=== PATIENT | female | born 1985 | race Caucasian/White ===

== ENCOUNTER 2020-03-01 18:03 | Emergency (ER) | payer SELFPAY ==
[~2020-03-01] VITALS: Ht 157.5 cm; Wt 52.2 kg
[2020-03-01] MEDS ORDERED: SODIUM CHLORIDE 0.9% 1000ML 1,000 ML IV STA (18:15)
[2020-03-01 18:49] LABS: BASOPHILS # (AUTO) 0.1 (0.0-0.1); BASOPHILS % 0.8 % (0.0-1.0); EOSINOPHILS # (AUTO) 0.1 (0.0-0.4); EOSINOPHILS % 1.1 % (0.0-6.0); HEMATOCRIT 42.7 % (34.2-44.1); HEMOGLOBIN 14.5 g/dL (12.0-16.0); LYMPHOCYTES # (AUTO) 2.1 (1.0-3.2); LYMPHOCYTES % 25.7 % (18.0-39.1); MEAN CORPUSCULAR HEMOGLOBIN 30.5 pg (28-32); MEAN CORPUSCULAR VOLUME 89.7 fL (81-99); MONOCYTES # (AUTO) 0.6 (0.2-0.8); MONOCYTES % 7.5 % (4.4-11.3); NEUTROPHILS # (AUTO) 5.2 (2.1-6.9); NEUTROPHILS % 64.8 % (38.7-80.0); PLATELET COUNT 266 x10e3/uL (140-360); RED BLOOD COUNT 4.76 x10e6/uL (3.6-5.1); RED CELL DISTRIBUTION WIDTH 11.9 % (11.7-14.4)
[2020-03-01 19:05] LABS: ALANINE AMINOTRANSFERASE 10 IU/L (0-55); ALBUMIN 4.2 g/dL (3.5-5.0); ALBUMIN/GLOBULIN RATIO 1.2 (0.8-2.0); ALKALINE PHOSPHATASE 70 IU/L (40-150); ANION GAP 13.7 mmol/L (8-16); BLOOD UREA NITROGEN 5 mg/dL (7-26); BUN/CREATININE RATIO 7 (6-25); CALCIUM 8.8 mg/dL (8.4-10.2); CARBON DIOXIDE 28 mmol/L (22-29); CHLORIDE 102 mmol/L (98-107); EST GLOMERULAR FILTRATION RATE > 60 ML/MIN (60-); GLUCOSE 85 mg/dL (74-118); POTASSIUM 3.7 mmol/L (3.5-5.1); SODIUM 140 mmol/L (136-145)
[2020-03-01] MEDS ORDERED: KETOROLAC TROMETHAMINE 30 MG/ML VIAL IV STA (19:10)
[2020-03-01 19:15] LABS: CLARITY,URINE CLEAR (CLEAR); COLOR,URINE YELLOW (YELLOW)
[2020-03-01] MEDS ORDERED: MAGNESIUM SULFATE 2GM/50ML 50 ML IV ONE ×2 (19:15→19:23)
[2020-03-01] MEDS ORDERED: DIPHENHYDRAMINE HCL INJ 50 MG/ML VIAL IV ONE (19:15)
[2020-03-01] MEDS ORDERED: METOCLOPRAMIDE HCL 10 MG/2ML VIAL IV ONE (19:15)
[2020-03-01] MEDS ORDERED: ACETAMIN/BUTALBITAL/CAFFEINE TAB PO ONE (19:15)
[2020-03-01 19:16] LABS: BILIRUBIN,URINE NEGATIVE (NEGATIVE); KETONES,URINE NEGATIVE (NEGATIVE); LEUKOCYTE ESTERASE ,URINE LARGE (NEGATIVE); NITRITE,URINE NEGATIVE (NEGATIVE); PROTEIN,URINE DIPSTICK NEGATIVE (NEGATIVE); URINE UROBILINOGEN 0.2 mg/dL (0.2 - 1)
[2020-03-01 19:20] LABS: BACTERIA,URINE RARE /HPF; EPITHELIAL CELLS,URINE FEW /LPF; RBC,URINE 0-5 /HPF (0-5); WBC,URINE (MAN) 0-5 /HPF (0-5)
--- NOTE | 2020-03-01 19:40 | Emergency Department Note ---
History of Present Illnes History of Present Illness Chief Complaint: Neurological History of Present Illness This is a 34 year old female arrived to the ED with complaints of a right sided headache for several days. Chief Complaint Comment pt came in via POV for c/o temporal headache with epistaxis, as per pt, she has had the ssx for 1 week now, pt takes Keppra and Depakote for seizures but denies having a recent seizure activity since August 2018, no unifocal deficits noted, VSS Historian: Patient Arrival Mode: Car Onset (how long ago): day(s) Radiation: Reports non-radiation Severity: mild Duration (how long): day(s) Timing of current episode: constant Past Medical/Family History Physician Review I have reviewed the patient's past medical and family history. Any updates have been documented here. Past Medical History Recent Fever: No Clinical Suspicion of Infectio: No New/Unexplained Change in Ment: No Past Medical History: Seizure Disorder, Depression Social History Smoking Cessation: Never Smoker Other Any Pre-Existing Lines (PICC,: No Review of Systems Review of Systems Constitutional: Reports no symptoms EENTM: Reports no symptoms Cardiovascular: Reports no symptoms Respiratory: Reports no symptoms Gastrointestinal: Reports no symptoms Genitourinary: Reports no symptoms Musculoskeletal: Reports no symptoms Integumentary: Reports no symptoms Neurological: Reports as per HPI, Reports headache Psychological: Reports no symptoms Endocrine: Reports no symptoms Hematological/Lymphatic: Reports no symptoms Review of other systems: All other systems negative Physical Exam Related Data Allergies: Coded Allergies: hydroxyzine (Verified Allergy, Unknown, 03/01/20) meperidine (Verified Allergy, Unknown, 03/01/20) phenytoin (Verified Allergy, Unknown, 03/01/20) Triage Vital Signs Vital Signs Date Time Temp Pulse Resp B/P (MAP) Pulse Ox O2 Delivery O2 Flow Rate FiO2 03/01/20 18:13 98.1 87 18 121/91 100 Room Air Vital signs reviewed: Yes Physical Exam CONSTITUTIONAL Constitutional: Present well-developed, Present well-nourished HENT HENT: Present normocephalic, Present atraumatic, Present oropharynx clear/moist, Present nose normal HENT L/R: Present left ext ear normal, Present right ext ear normal EYES Eyes: Reports PERRL, Reports conjunctivae normal NECK Neck: Present ROM normal PULMONARY Pulmonary: Present effort normal, Present breath sounds normal CARDIOVASCULAR Cardiovascular: Present regular rhythm, Present heart sounds normal, Present capillary refill normal, Present normal rate GASTROINTESTINAL Abdominal: Present soft, Present nontender, Present bowel sounds normal GENITOURINARY Genitourinary: Present exam deferred SKIN Skin: Present warm, Present dry MUSCULOSKELETAL Musculoskeletal: Present ROM normal NEUROLOGICAL Neurological: Present alert, Present oriented x 3, Present no gross motor or sensory deficits PSYCHOLOGICAL Psychological: Present mood/affect normal, Present judgement normal Results Laboratory Result Diagram: 03/01/20183403/01/201834 Laboratory Laboratory Tests Test 03/01/20 18:35 03/01/20 18:17 White Blood Count 7.99 x10e3/uL (4.8-10.8) Red Blood Count 4.76 x10e6/uL (3.6-5.1) Hemoglobin 14.5 g/dL (12.0-16.0) Hematocrit 42.7 % (34.2-44.1) Mean Corpuscular Volume 89.7 fL (81-99) Mean Corpuscular Hemoglobin 30.5 pg (28-32) Mean Corpuscular Hemoglobin Concent 34.0 g/dL (31-35) Red Cell Distribution Width 11.9 % (11.7-14.4) Platelet Count 266 x10e3/uL (140-360) Neutrophils (%) (Auto) 64.8 % (38.7-80.0) Lymphocytes (%) (Auto) 25.7 % (18.0-39.1) Monocytes (%) (Auto) 7.5 % (4.4-11.3) Eosinophils (%) (Auto) 1.1 % (0.0-6.0) Basophils (%) (Auto) 0.8 % (0.0-1.0) Neutrophils # (Auto) 5.2 (2.1-6.9) Lymphocytes # (Auto) 2.1 (1.0-3.2) Monocytes # (Auto) 0.6 (0.2-0.8) Eosinophils # (Auto) 0.1 (0.0-0.4) Basophils # (Auto) 0.1 (0.0-0.1) Absolute Immature Granulocyte (auto 0.01 x10e3/uL (0-0.1) Sodium Level 140 mmol/L (136-145) Potassium Level 3.7 mmol/L (3.5-5.1) Chloride Level 102 mmol/L (98-107) Carbon Dioxide Level 28 mmol/L (22-29) Anion Gap 13.7 mmol/L (8-16) Blood Urea Nitrogen 5 mg/dL (7-26) Creatinine 0.70 mg/dL (0.57-1.11) Estimat Glomerular Filtration Rate > 60 ML/MIN (60-) BUN/Creatinine Ratio 7 (6-25) Glucose Level 85 mg/dL (74-118) Calcium Level 8.8 mg/dL (8.4-10.2) Total Bilirubin 0.3 mg/dL (0.2-1.2) Aspartate Amino Transf (AST/SGOT) 14 IU/L (5-34) Alanine Aminotransferase (ALT/SGPT) 10 IU/L (0-55) Alkaline Phosphatase 70 IU/L (40-150) Total Protein 7.6 g/dL (6.5-8.1) Albumin 4.2 g/dL (3.5-5.0) Globulin 3.4 g/dL (2.3-3.5) Albumin/Globulin Ratio 1.2 (0.8-2.0) Lab results reviewed: Yes Imaging Imaging results reviewed: Yes Assessment & Plan Medical Decision Making MDM This patient presents with a headache most consistent with complex migraine. Differential diagnosis includes migraine versus tension type headache. No headache red flags. Neurologic exam without evidence of meningismus, focal neurologic findings. Presentation not consistent with acute intracranial bleed to include SAH (lack of risk factors, headache history). Presentation not consistent with acute BACK SIZER infection to include meningitis or brain abscess, Temporal arteritis unlikely, as is acute angle closure glaucoma given history and physical findings. Presentation not consistent with other acute, emergent causes of headache at this time. Plan to treat symptomatically with pain medication. No indication for imaging/LP at this time. Plan: pain medication, CT brain, serial reassessment Reassessment Reassessment presents with Headache. No focal neurological symptoms. Neuro exam is benign. Pt is nontoxic. VSS. Based on history and normal neurological exam I have low suspicion for intracr anial tumor, intracranial bleed, meningitis, temporal arteritis, glaucoma, CO poisoning. Most likely patient has benign headache, recommend rest, hydration, and ibuprofen. Disposition: Discharge home with strict return precautions and instructions for prompt primary care follow up. Assessment & Plan Final Impression: (1) Migraine Depart Disposition: HOME, SELF-CARE Last Vital Signs Date Time Temp Pulse Resp B/P (MAP) Pulse Ox O2 Delivery O2 Flow Rate FiO2 03/01/20 18:59 98.9 78 18 115/80 100 Room Air Home Meds Active Scripts Metoclopramide Hcl (REGLAN) 10 Mg Tablet, 10 MG PO Q8HR PRN for HEADACHE, #12 TAB Prov:BALDOMERO CARMICHAEL DO 03/01/20 Butalbit/Acetamin/Caff/Codeine (Fioricet-Cod [id number] Cap) 1 Each Capsule, 1 TAB PO Q8HR PRN for HEADACHE, #14 Prov:BALDOMERO CARMICHAEL DO 03/01/20 Medications in the ED Sodium Chloride 1,000 ml @ 0 mls/hr Q0M STAT IV Last administered on 03/01/20at 18:49; Admin Dose 250 MLS/HR; Start 03/01/20 at 18:15; Stop 03/01/20 at 18:17; Status DC Magnesium Sulfate 50 ml @ 25 mls/hr ONCE ONCE IV ; Start 03/01/20 at 19:15; Stop 03/01/20 at 21:14; Status UNV Ketorolac Tromethamine 30 mg ONCE STAT IV ; Start 03/01/20 at 19:10; Stop 03/01/20 at 19:11; Status UNV Acetaminophen/ Butalbital/ Caffeine 1 ea ONCE ONCE PO ; Start 03/01/20 at 19:15; Stop 03/01/20 at 19:16; Status UNV Metoclopramide HCl 10 mg ONCE ONCE IV ; Start 03/01/20 at 19:15; Stop 03/01/20 at 19:16; Status UNV Diphenhydramine HCl 25 mg NOW ONCE IV ; Start 03/01/20 at 19:15; Stop 03/01/20 at 19:16; Status UNV BALDOMERO CARMICHAEL, Mar 01, 2020 19:40
--- NOTE | 2020-03-01 19:57 | Diagnostic Imaging Report ---
History: Headache Comparison studies: None Technique: Axial images were obtained from the skull base to the vertex. Coronal and sagittal reconstructions obtained from the axial data. Dose modulation, iterative reconstruction, and/or weight based adjustment of the mA/kV was utilized to reduce the radiation dose to as low as reasonably achievable. Intravenous contrast: None Findings: Scalp/skull: No abnormalities. No fractures, blastic or lytic lesions. Extra-axial spaces: No masses. No fluid collections. Brain sulci: Appropriate for age. Ventricles: Normal in size and configuration. No hydrocephalus. Parenchyma: No abnormal densities. No masses, hemorrhage, acute or chronic cortical vascular insults. Sellar/suprasellar region: No abnormalities Craniocervical junction: Patent foramen magnum. No Chiari one malformation. Incidental findings: None. IMPRESSION: No abnormalities. Signed by: Dr. Phil Crow M.D. on 03/01/2020 7:53 PM
[2020-03-01] MEDS ORDERED: REGLAN10 MG PO (21:23)
[2020-03-01] MEDS ORDERED: FIORICET-COD 51 EACH PO (21:23)
[2020-03-01 21:33] VITALS: BP 100/64
== END 2020-03-01 21:36 | disposition home or self-care (01) ==
LOC: ER 18:55
DX: G43.909 Migraine, unspecified, not intractable, without status migrainosus (principal); G40.909 Epilepsy, unspecified, not intractable, without status epilepticus
CPT/HCPCS: 36415; 70450; 80053; 81001; 85025; 99284; J1200; J1885; J2765; J3475; J7030

== ENCOUNTER 2020-03-16 20:05 | Emergency (ER) | payer SELFPAY ==
[~2020-03-16] VITALS: Ht 157.5 cm; Wt 52.2 kg
[~2020-03-16 20:05] MED LIST: FIORICET-COD 51 EACH PO; REGLAN10 MG PO
[2020-03-16] MEDS ORDERED: TRAMADOL HCL 50 MG TAB PO ONE (20:30)
[2020-03-16] MEDS ORDERED: PHENAZOPYRIDINE HCL 100 MG TAB PO ONE (20:30)
[2020-03-16 21:29] LABS: CLARITY,URINE CLEAR (CLEAR); COLOR,URINE YELLOW (YELLOW); KETONES,URINE NEGATIVE (NEGATIVE); LEUKOCYTE ESTERASE ,URINE TRACE (NEGATIVE); NITRITE,URINE NEGATIVE (NEGATIVE); PROTEIN,URINE DIPSTICK NEGATIVE (NEGATIVE)
[2020-03-16 21:30] LABS: AMPHETAMINES SCREEN,URINE NEGATIVE (NEGATIVE); BENZODIAZEPINES SCREEN,URINE NEGATIVE (NEGATIVE); PHENCYCLIDINE SCREEN,URINE NEGATIVE (NEGATIVE); URINE UROBILINOGEN 0.2 mg/dL (0.2 - 1)
[2020-03-16 21:45] LABS: EPITHELIAL CELLS,URINE FEW /LPF
[2020-03-16 21:52] LABS: RBC,URINE 0-5 /HPF (0-5); WBC,URINE (MAN) 0-5 /HPF (0-5)
[2020-03-16 21:55] LABS: BACTERIA,URINE RARE /HPF
[2020-03-16] MEDS ORDERED: PYRIDIUM100 MG PO (22:46)
[2020-03-16] MEDS ORDERED: KEFLEX500 MG PO (22:46)
[2020-03-16 22:51] VITALS: BP 118/79
== END 2020-03-16 23:04 | disposition home or self-care (01) ==
LOC: ER 20:08
DX: N39.0 Urinary tract infection, site not specified (principal); M54.5 Low back pain; R30.0 Dysuria; G40.909 Epilepsy, unspecified, not intractable, without status epilepticus; F32.9 Major depressive disorder, single episode, unspecified
CPT/HCPCS: 74176; 80307; 81001; 81025; 87086; 99283

== ENCOUNTER 2022-07-05 17:28 | Emergency (ER) | payer MEDICARE ==
[~2022-07-05] VITALS: Ht 157.5 cm; Wt 54.4 kg
[~2022-07-05 17:28] MED LIST changes: +AZITHROMYCIN250 MG PO; +KEFLEX500 MG PO; +PYRIDIUM100 MG PO
[2022-07-05] MEDS ORDERED: KETOROLAC TROMETHAMINE 30 MG/ML VIAL IV STA (17:58)
[2022-07-05] MEDS ORDERED: ONDANSETRON HCL INJ 2MG/ML 2ML 2 MG/ML VIAL IV STA (17:58)
[2022-07-05] MEDS ORDERED: SODIUM CHLORIDE 0.9% 1000ML 1,000 ML IV ONE (18:00)
[2022-07-05 18:29] LABS: BASOPHILS # (AUTO) 0.1 (0.0-0.1); BASOPHILS % 0.6 % (0.0-1.0); EOSINOPHILS # (AUTO) 0.1 (0.0-0.4); HEMATOCRIT 39.4 % (34.2-44.1); HEMOGLOBIN 13.6 g/dL (12.0-16.0); LYMPHOCYTES # (AUTO) 1.2 (1.0-3.2); LYMPHOCYTES % 10.6 % (18.0-39.1); MEAN CORPUSCULAR HEMOGLOBIN 32.9 pg (28-32); MEAN CORPUSCULAR HGB CONC 34.5 g/dL (31-35); MEAN CORPUSCULAR VOLUME 95.2 fL (81-99); MONOCYTES # (AUTO) 0.7 (0.2-0.8); MONOCYTES % 6.4 % (4.4-11.3); NEUTROPHILS # (AUTO) 8.8 (2.1-6.9); NEUTROPHILS % 81.1 % (38.7-80.0); PLATELET COUNT 182 x10e3/uL (140-360); RED BLOOD COUNT 4.14 x10e6/uL (3.6-5.1); RED CELL DISTRIBUTION WIDTH 11.7 % (11.7-14.4)
[2022-07-05 18:35] LABS: CLARITY,URINE SL CLOUDY (CLEAR); COLOR,URINE YELLOW (YELLOW); KETONES,URINE TRACE (NEGATIVE); LEUKOCYTE ESTERASE ,URINE NEGATIVE (NEGATIVE); NITRITE,URINE NEGATIVE (NEGATIVE); PROTEIN,URINE DIPSTICK NEGATIVE (NEGATIVE); URINE UROBILINOGEN 1 mg/dL (0.2 - 1)
[2022-07-05 18:45] LABS: ALBUMIN 3.5 g/dL (3.5-5.0); ALBUMIN/GLOBULIN RATIO 1.1 (0.8-2.0); ANION GAP 12.8 mmol/L (8-16); CALCIUM 8.8 mg/dL (8.4-10.2); CREATININE, SERUM 0.68 mg/dL (0.57-1.11); POTASSIUM 3.8 mmol/L (3.5-5.1)
[2022-07-05 18:48] LABS: BACTERIA,URINE MODERATE /HPF; WBC,URINE (MAN) 0-5 /HPF (0-5)
[2022-07-05 18:49] LABS: EPITHELIAL CELLS,URINE MODERATE /LPF
[2022-07-05] MEDS ORDERED: KETOROLAC TROME10 MG PO (18:58)
[2022-07-05 19:07] VITALS: BP 121/88
== END 2022-07-05 19:05 | disposition home or self-care (01) ==
LOC: ER 17:43
DX: M54.50 Low back pain, unspecified (principal); N20.0 Calculus of kidney; R20.2 Paresthesia of skin; R53.1 Weakness; F32.A Depression, unspecified; G40.909 Epilepsy, unspecified, not intractable, without status epilepticus
CPT/HCPCS: 36415; 74176; 80053; 81001; 85025; 99284; J1885; J7030

== ENCOUNTER 2022-09-03 20:15 | Emergency (ER) | payer SELFPAY ==
[~2022-09-03] VITALS: Ht 157.5 cm; Wt 56.0 kg
[~2022-09-03 20:15] MED LIST changes: +AMOXICILLIN500 MG PO; +IBUPROFEN600 MG PO; +KETOROLAC TROME10 MG PO
[2022-09-03] MEDS ORDERED: KETOROLAC TROMETHAMINE 30 MG/ML VIAL IV STA (20:25)
[2022-09-03] MEDS ORDERED: KETOROLAC TROMETHAMINE 30 MG/ML VIAL ONE (20:36)
[2022-09-03 20:40] LABS: BASOPHILS # (AUTO) 0.1 (0.0-0.1); BASOPHILS % 0.7 % (0.0-1.0); EOSINOPHILS # (AUTO) 0.2 (0.0-0.4); EOSINOPHILS % 2.6 % (0.0-6.0); HEMATOCRIT 40.5 % (34.2-44.1); LYMPHOCYTES # (AUTO) 2.2 (1.0-3.2); LYMPHOCYTES % 25.9 % (18.0-39.1); MEAN CORPUSCULAR HGB CONC 34.6 g/dL (31-35); MEAN CORPUSCULAR VOLUME 92.5 fL (81-99); MONOCYTES # (AUTO) 0.7 (0.2-0.8); MONOCYTES % 7.7 % (4.4-11.3); NEUTROPHILS # (AUTO) 5.3 (2.1-6.9); PLATELET COUNT 217 x10e3/uL (140-360); RED BLOOD COUNT 4.38 x10e6/uL (3.6-5.1); RED CELL DISTRIBUTION WIDTH 11.5 % (11.7-14.4)
[2022-09-03 20:56] LABS: ALBUMIN 3.6 g/dL (3.5-5.0); CALCIUM 8.9 mg/dL (8.4-10.2); CREATININE, SERUM 0.88 mg/dL (0.57-1.11)
[2022-09-03 21:02] LABS: CLARITY,URINE CLEAR (CLEAR); COLOR,URINE YELLOW (YELLOW); KETONES,URINE TRACE (NEGATIVE); LEUKOCYTE ESTERASE ,URINE NEGATIVE (NEGATIVE); NITRITE,URINE NEGATIVE (NEGATIVE); PROTEIN,URINE DIPSTICK NEGATIVE (NEGATIVE); URINE UROBILINOGEN 1 mg/dL (0.2 - 1)
[2022-09-03 21:05] LABS: AMPHETAMINES SCREEN,URINE NEGATIVE (NEGATIVE); BENZODIAZEPINES SCREEN,URINE NEGATIVE (NEGATIVE); PHENCYCLIDINE SCREEN,URINE NEGATIVE (NEGATIVE)
[2022-09-03 21:15] LABS: BACTERIA,URINE FEW /HPF; EPITHELIAL CELLS,URINE FEW /LPF; MUCUS,URINE MANY (RARE); RBC,URINE 0-5 /HPF (0-5)
[2022-09-03] MEDS ORDERED: KETOROLAC TROME10 MG PO (22:18)
[2022-09-03 22:24] VITALS: BP 122/73; PULSE 81; RESP 18; TEMP 98; O2SAT 99
[2022-09-04] MEDS ORDERED: IOPAMIDOL 370 MG/ML 100 ML INFUS..BTL INJ ONE (05:42)
[2022-09-09] MEDS ORDERED: HYDROMORPHONE 1MG/1ML INJ ONE (12:54)
== END 2022-09-03 22:30 | disposition home or self-care (01) ==
LOC: ER 21:09
DX: N83.12 Corpus luteum cyst of left ovary (principal); N20.0 Calculus of kidney; K80.20 Calculus of gallbladder without cholecystitis without obstruction; G40.909 Epilepsy, unspecified, not intractable, without status epilepticus; Z88.8 Allergy status to other drugs, medicaments and biological substances; Z79.1 Long term (current) use of non-steroidal anti-inflammatories (NSAID); Z79.899 Other long term (current) drug therapy
CPT/HCPCS: 36415; 74177; 80053; 80307; 81001; 83690; 85025; 99283; J1885; Q9967